=== PATIENT | male | born 1990 | race Caucasian/White ===

== ENCOUNTER 2020-08-03 19:54 | Emergency (ER) | payer OTHER ==
[2020-08-03 21:19] LABS: BASOPHIL 0.6 % (0-2); EOSINOPHIL 1.4 % (0-5); HCT 46.1 % (42.0-52.0); HGB 15.3 g/dl (13.2-18.0); MCH 29.4 pg (25.0-31.0); MCHC 33.2 g/dL (32.0-36.0); MCV 88.7 fL (78.0-100.0); MONOCYTE 8.4 % (0-12); MPV 9.6 fL (6.0-9.5); NEUTROPHIL 59.9 % (41-80); NRBC 0; PLT 218 K/uL (150-400); WBC 7.3 K/uL (4.0-10.5)
[2020-08-03 21:42] LABS: PRO-BNP 15 pg/mL (<125)
[2020-08-03 21:49] LABS: ALBUMIN 4.4 g/dL (3.4-5.0); BILIRUBIN - TOTAL 0.4 mg/dL (0.2-1.0); BUN/CREAT RATIO (CALC) 14.3 RATIO; C-REACTIVE PROTEIN 1.2 mg/dL (<=0.90); CREATININE 1.05 mg/dL (0.67-1.17); GLOBULIN (CALCULATION) 3.7 g/dL; POTASSIUM 3.6 mmol/L (3.5-5.1); TOTAL PROTEIN 8.1 g/dL (6.4-8.2)
[2020-08-03 22:22] LABS: AMPHETAMINES POSITIVE (NEGATIVE); BARBITURATES NEGATIVE (NEGATIVE); ECSTASY (MDMA) NEGATIVE (NEGATIVE); MARIJUANA (THC) NEGATIVE (NEGATIVE); METHADONE NEGATIVE (NEGATIVE); OPIATES NEGATIVE (NEGATIVE); OXYCODONE NEGATIVE (NEGATIVE)
[2020-08-03] MEDS ORDERED: MEDROL 4MG DOSEP4 MG PO (23:32)
[2020-08-03] MEDS ORDERED: VENTOLIN HFA IN18 GM INH (23:32)
== END 2020-08-03 23:50 | disposition home or self-care (01) ==
LOC: FER 19:54
PROVIDERS: Emergency Medicine Emergency Medical Services
DX: U07.1 COVID-19 (principal); R00.2 Palpitations; R42 Dizziness and giddiness; I11.9 Hypertensive heart disease without heart failure; E66.9 Obesity, unspecified; J45.909 Unspecified asthma, uncomplicated; F17.290 Nicotine dependence, other tobacco product, uncomplicated; Z87.01 Personal history of pneumonia (recurrent); Z88.2 Allergy status to sulfonamides
CPT/HCPCS: 36415; 71045; 71275; 80053; 80305; 82728; 83615; 83880; 84439; 84443; 84484; 85025; 85379; 86140; 93005; 94640; 94664; J2930; J7030; Q9967; U0002

== ENCOUNTER 2022-04-23 17:19 | Emergency (ER) | payer SELFPAY ==
[~2022-04-23 17:19] MED LIST: MEDROL 4MG DOSEP4 MG PO; VENTOLIN HFA IN18 GM INH
[2022-04-23 19:37] LABS: EOSINOPHIL 4.3 % (0-5); HCT 44.5 % (42.0-52.0); HGB 15.4 g/dl (13.2-18.0); MCH 30.4 pg (25.0-31.0); MCHC 34.6 g/dL (32.0-36.0); MCV 87.9 fL (78.0-100.0); MONOCYTE 7.9 % (0-12); MPV 10.5 fL (6.0-9.5); NEUTROPHIL 57.8 % (41-80); NRBC 0; PLT 294 K/uL (150-400); RBC 5.06 M/uL (4.70-6.00); RDW 12.4 % (11.5-14.0); WBC 9.4 K/uL (4.0-10.5)
[2022-04-23 19:41] LABS: INR 0.93 (0.9-1.2); PROTHROMBIN TIME 12.2 SECONDS (11.9-13.9)
[2022-04-23 19:45] LABS: ALBUMIN 4.6 g/dL (3.4-5.0); BILIRUBIN - TOTAL 0.3 mg/dL (0.2-1.0); BUN/CREAT RATIO (CALC) 11.2 RATIO; CREATININE 0.89 mg/dL (0.67-1.17); GLOBULIN (CALCULATION) 3.4 g/dL; POTASSIUM 3.7 mmol/L (3.5-5.1)
[2022-04-23] MEDS ORDERED: PRINIVIL10 MG PO (22:40)
== END 2022-04-23 23:02 | disposition home or self-care (01) ==
LOC: FER 17:19
PROVIDERS: Physician Assistant
DX: R07.89 Other chest pain (principal); I10 Essential (primary) hypertension; E66.9 Obesity, unspecified; Z88.2 Allergy status to sulfonamides; Z88.1 Allergy status to other antibiotic agents; F17.290 Nicotine dependence, other tobacco product, uncomplicated
CPT/HCPCS: 36415; 71045; 80053; 84484; 85025; 85610; 93005; J0360